=== PATIENT | female | born 1940 | race Caucasian/White ===

== ENCOUNTER → 2018-04-28 | Outpatient (CLI) | payer MEDICARE ==
[~2018-04-28] MED LIST: ATOR40TA78 PO; BIMA2.5D EACHEYE; CYCL5TAB PO; EXEN2VIA SC; INSU100V8 SQ; NAPR500T8 PO; PREG50CA PO; TIMO5DRO28 EACHEYE
[2018-04-28 11:20] LABS: MICROSCOPIC INDICATED
[2018-04-28 11:41] LABS: CULTURE INDICATED? YES
== END | disposition home or self-care (01) ==
LOC: STAR 09:53
PROVIDERS: ATTEND Orthopaedic Surgery
DX: Z01.818 Encounter for other preprocedural examination (principal)
CPT/HCPCS: 81001; 87081; 87086; 87147; 93005

== ENCOUNTER 2018-05-06 07:54 | Inpatient (IN) | payer MEDICARE, BC ==
[~2018-05-06] VITALS: Ht 154.9 cm; Wt 108.7 kg
[2018-05-06] MEDS ORDERED: FENTANYL PF 250 MCG/5ML ONE (08:18)
[2018-05-06] MEDS ORDERED: ROPIvacaine/PF 0.2%, 20 ML ONE ×2 (08:18→09:23)
[2018-05-06] MEDS ORDERED: LACTATED RINGERS 1,000 ML IV SCH (08:21)
[2018-05-06] MEDS ORDERED: ACETAMINOPHEN 500 MG TABLET PO ONE (08:30)
[2018-05-06] MEDS ORDERED: ROCURONIUM 10MG/ML,5ML ONE (08:55)
[2018-05-06] MEDS ORDERED: GLYCOPYRROLATE 0.2MG/1ML, 5ML ONE (08:55)
[2018-05-06] MEDS ORDERED: PROPOFOL 10 MG/ML, 20ML ONE (08:55)
[2018-05-06] MEDS ORDERED: ONDANSETRON 2MG/ML, 2ML ONE (08:55)
[2018-05-06] MEDS ORDERED: CEFAZOLIN 1,000 MG ONE (08:55)
[2018-05-06] MEDS ORDERED: NEOSTIGMINE 1 MG/ML, 10ML ONE (08:55)
[2018-05-06] MEDS ORDERED: DEXAMETHASONE 4 MG/ML, 1ML ONE (08:55)
[2018-05-06 09:07] VITALS: BP 112/76
[2018-05-06] MEDS ORDERED: TRANEXAMIC ACID 100 MG/ML, 10ML ONE (09:23)
[2018-05-06] MEDS ORDERED: morphine SULFATE/PF 1 MG/ML, 10ML ONE (09:23)
[2018-05-06] MEDS ORDERED: EPINEPHRINE 1 MG/ML, 1ML ONE (09:23)
[2018-05-06] MEDS ORDERED: KETOROLAC 60 MG/2 ML ONE (09:23)
[2018-05-06] MEDS ORDERED: NEOSPORIN OINT, 15GM ONE (09:23)
[2018-05-06] MEDS ORDERED: ONDANSETRON ODT 8 MG PO PRN (10:00)
[2018-05-06] MEDS ORDERED: hydrALAzine 20 MG/ML, 1ML IV PRN (10:00)
[2018-05-06] MEDS ORDERED: LABETALOL 5MG/ML, 20ML IV PRN (10:00)
[2018-05-06] MEDS ORDERED: ACETAMINOPHEN 325 MG TABLET PO PRN (10:00)
[2018-05-06] MEDS ORDERED: OXYcodone 5 MG/5 ML ORAL.SOL UDC PO PRN (10:00)
[2018-05-06] MEDS ORDERED: PROMETHAZINE 25 MG/ML, 1ML IV PRN (10:00)
[2018-05-06] MEDS ORDERED: PROMETHAZINE 25 MG/ML, 1ML IM PRN ×2 (10:00)
[2018-05-06] MEDS ORDERED: MORPHINE SULFATE 4 MG/ML, 1ML IVPush PRN (10:00)
[2018-05-06] MEDS ORDERED: ONDANSETRON 2MG/ML, 2ML IV PRN (10:00)
[2018-05-06] MEDS ORDERED: PROMETHAZINE 12.5 MG SUPP PR PRN (10:00)
[2018-05-06] MEDS ORDERED: PROMETHAZINE 25 MG SUPP PR PRN (10:00)
[2018-05-06] MEDS ORDERED: HYDROmorphone 2 MG/ML, 1ML IVPush PRN (10:00)
[2018-05-06] MEDS ORDERED: METHYLENE BLUE 10 MG/ML 10ML ONE (10:07)
[2018-05-06] MEDS ORDERED: VANCOMYCIN 1,000 MG ONE (10:10)
[2018-05-06] MEDS ORDERED: FENTANYL PF 100 MCG/2ML ONE ×2 (10:59→11:39)
[2018-05-06] MEDS ORDERED: OXYcodone 5 MG/5 ML ORAL.SOL UDC ONE (11:39)
[2018-05-06] MEDS: FENTANYL PF 100 MCG/2ML IV PRN ×2 (11:40→11:45)
[2018-05-06] MEDS ORDERED: LORazepam 2 MG/ML, 1ML ONE (11:47)
[2018-05-06] MEDS ORDERED: MEPERIDINE/PF 25MG/ML,1ML ONE (12:03)
[2018-05-06] MEDS ORDERED: PROMETHAZINE 25 MG/ML, 1ML ONE (12:03)
[2018-05-06] MEDS: MEPERIDINE/PF 25MG/0.5ML IVPush PRN ×2 (12:45→13:00)
[2018-05-06 14:18] VITALS: BP 125/72
[2018-05-06] MEDS ORDERED: OXYcodone IR 5MG TABLET ONE (16:37)
[2018-05-06] MEDS: OXYcodone IR 5MG TABLET PO PRN ×2 (16:40→21:35)
[2018-05-06] MEDS ORDERED: PREGABALIN 75 MG CAPSULE ONE (16:58)
[2018-05-06] MEDS ORDERED: ONDANSETRON 2MG/ML, 2ML IVPush PRN (17:00)
[2018-05-06] MEDS ORDERED: HYDROcodone/APAP 7.5-325MG/15ML UDC PO PRN (17:00)
[2018-05-06] MEDS: PREGABALIN 75 MG CAPSULE PO SCH ×2 (17:10→18:44)
[2018-05-06] MEDS: CEFAZOLIN PMX 1GM/50ML 50 ML IVPB SCH (17:54)
[2018-05-06] MEDS: POTASSIUM CHLORIDE 10 MEQ in D5%-0.45% NACL 1,000 ML IV SCH (17:55)
[2018-05-06 19:58] VITALS: BP 100/63
[2018-05-06] MEDS ORDERED: PREGABALIN 75 MG CAPSULE PO SCH (21:00)
[2018-05-06] MEDS: INSULIN REGULAR 100 UNITS/ML, 3ML VIAL SQ-INSULIN SCH (21:00)
[2018-05-06] MEDS: ACETAMINOPHEN 325 MG TABLET PO PRN (21:35)
[2018-05-06] MEDS ORDERED: VANCOMYCIN PMX 1GM/200ML 200 ML IVPB ONE (22:00)
[2018-05-06] MEDS: INSULIN GLARGINE 100 UNITS/ML, PEN SQ-INSULIN SCH (22:20)
[2018-05-07 00:06] VITALS: BP 107/57
[2018-05-07] MEDS: CEFAZOLIN PMX 1GM/50ML 50 ML IVPB SCH (01:57)
[2018-05-07] MEDS: OXYcodone IR 5MG TABLET PO PRN ×2 (01:58→06:17)
[2018-05-07] MEDS: ACETAMINOPHEN 325 MG TABLET PO PRN ×2 (01:58→06:18)
[2018-05-07 04:28] VITALS: BP 110/61
[2018-05-07] MEDS: ENOXAPARIN 30 MG/0.3 ML SQ SCH ×2 (06:17→17:29)
[2018-05-07 07:16] VITALS: BP 106/53
[2018-05-07] MEDS: PREGABALIN 75 MG CAPSULE PO SCH ×2 (07:45→20:30)
[2018-05-07] MEDS: TIMOLOL OPHTH 0.5%, 5ML EACHEYE SCH (07:45)
[2018-05-07] MEDS: INSULIN REGULAR 100 UNITS/ML, 3ML VIAL SQ-INSULIN SCH ×4 (07:47→20:36)
[2018-05-07 14:50] VITALS: BP 114/73
[2018-05-07] MEDS: KETOROLAC 30 MG/1 ML IV SCH (17:00)
[2018-05-07] MEDS: POTASSIUM CHLORIDE 10 MEQ in D5%-0.45% NACL 1,000 ML IV SCH (17:22)
[2018-05-07 19:42] VITALS: BP 96/56
[2018-05-07] MEDS: INSULIN GLARGINE 100 UNITS/ML, PEN SQ-INSULIN SCH (20:40)
[2018-05-08] MEDS: KETOROLAC 30 MG/1 ML IV SCH ×2 (01:34→10:35)
[2018-05-08 02:11] VITALS: BP 120/70
[2018-05-08] MEDS: OXYcodone IR 5MG TABLET PO PRN ×2 (03:47→21:32)
[2018-05-08] MEDS: ENOXAPARIN 30 MG/0.3 ML SQ SCH ×2 (06:09→17:52)
[2018-05-08] MEDS: INSULIN REGULAR 100 UNITS/ML, 3ML VIAL SQ-INSULIN SCH ×4 (07:57→21:32)
[2018-05-08] MEDS: TIMOLOL OPHTH 0.5%, 5ML EACHEYE SCH (07:57)
[2018-05-08] MEDS: PREGABALIN 75 MG CAPSULE PO SCH ×2 (07:58→21:31)
[2018-05-08 09:23] VITALS: BP 116/77
[2018-05-08 14:33] VITALS: BP 115/71
[2018-05-08] MEDS: POTASSIUM CHLORIDE 10 MEQ in D5%-0.45% NACL 1,000 ML IV SCH (17:00)
[2018-05-08] MEDS: ACETAMINOPHEN 325 MG TABLET PO PRN (17:10)
[2018-05-08 19:37] VITALS: BP 111/61
[2018-05-08] MEDS: INSULIN GLARGINE 100 UNITS/ML, PEN SQ-INSULIN SCH (21:32)
[2018-05-09 00:24] VITALS: BP 132/74
[2018-05-09] MEDS: ACETAMINOPHEN 325 MG TABLET PO PRN ×3 (01:14→15:47)
[2018-05-09] MEDS: INSULIN REGULAR 100 UNITS/ML, 3ML VIAL SQ-INSULIN SCH ×3 (06:35→16:00)
[2018-05-09] MEDS: ENOXAPARIN 30 MG/0.3 ML SQ SCH ×2 (06:35→18:07)
[2018-05-09 07:43] VITALS: BP 130/79
[2018-05-09] MEDS: TIMOLOL OPHTH 0.5%, 5ML EACHEYE SCH (09:15)
[2018-05-09] MEDS: PREGABALIN 75 MG CAPSULE PO SCH (09:16)
[2018-05-09] MEDS ORDERED: BISACODYL 10 MG SUPP PR PRN (11:00)
[2018-05-09] MEDS ORDERED: POLYETHYLENE GLYCOL 17 GM PACKET PO PRN (11:00)
[2018-05-09] MEDS ORDERED: DOCUSATE 100 MG CAPSULE PO SCH (11:00)
[2018-05-09] MEDS: POTASSIUM CHLORIDE 10 MEQ in D5%-0.45% NACL 1,000 ML IV SCH (13:06)
[2018-05-09] MEDS ORDERED: OXYC-307 PO (15:29)
[2018-05-09] MEDS ORDERED: ASPI81TA45 PO (15:30)
[2018-05-09] MEDS ORDERED: CELE100C PO (15:30)
[2018-05-09 16:49] VITALS: BP 147/75
[2018-05-09] MEDS ORDERED: ACET650S12 PR (17:45)
[2018-05-09] MEDS ORDERED: ACET-1757 PO (17:46)
[2018-05-09] MEDS ORDERED: TRAM50TA2 PO (17:47)
== END 2018-05-09 19:20 | DRG 470 ==
LOC: ORIP 07:54 → 4NOR 13:45 → EDSTATUS 15:00
PROVIDERS: ADMIT Orthopaedic Surgery; ATTEND Orthopaedic Surgery
PROC: 3E0T3BZ Introduction of Anesthetic Agent into Peripheral Nerves and Plexi, Percutaneous Approach (ICD-10-PCS; 2018-05-06)
PROC: 0SRD0J9 Replacement of Left Knee Joint with Synthetic Substitute, Cemented, Open Approach (ICD-10-PCS; principal; 2018-05-06 10:00)
DX: M17.12 Unilateral primary osteoarthritis, left knee (principal); Z68.42 Body mass index [BMI] 45.0-49.9, adult; E11.9 Type 2 diabetes mellitus without complications; G47.33 Obstructive sleep apnea (adult) (pediatric); E66.01 Morbid (severe) obesity due to excess calories; E78.5 Hyperlipidemia, unspecified; H40.9 Unspecified glaucoma; Z88.0 Allergy status to penicillin; Z82.61 Family history of arthritis; Z88.8 Allergy status to other drugs, medicaments and biological substances
CPT/HCPCS: 82962; C1713; G0378; J0171; J0690; J1100; J1650; J1815; J1885; J2175; J2274; J2405; J2550; J2704; J2710; J2795; J3010; J3370; J3480; J3490; C1776; J7120; Q9968